=== PATIENT | female | born 1980 | race Caucasian/White ===

== ENCOUNTER 2021-05-17 18:05 | Inpatient (IN) | payer SELFPAY ==
[2021-05-17] VITALS (8 sets, daily range): BP systolic 91–146; BP diastolic 46–87; PULSE 98–135; RESP 16–24; TEMP 36.6–38.1; O2SAT 95–100; BMI 32.3
--- NOTE | 2021-05-17 18:26 | XRR_ITS ---
PROCEDURE INFORMATION: Exam: XR Chest Exam date and time: 05/17/2021 6:26 PM Age: 41 years old Clinical indication: Fever TECHNIQUE: Imaging protocol: XR of the chest. Views: 1 view. COMPARISON: No relevant prior studies available. FINDINGS: Lungs: The lungs are clear. Pleural spaces: Unremarkable. No pleural effusion. No pneumothorax. Heart/Mediastinum: Unremarkable. No cardiomegaly. Bones/joints: Unremarkable. XR/XR chest 1V portable [id number] IMPRESSION: No acute cardiopulmonary abnormality.
--- NOTE | 2021-05-17 18:27 | ED_ITS ---
HPI - Abdominal Pain General: Chief Complaint: Abdominal Pain Stated Complaint: ABD PAIN Time Seen by Provider: 05/17/21 18:26 Source: patient Mode of arrival: ambulatory Limitations: no limitations History of Present Illness: HPI narrative: 41-year-old female states she been having abdominal pain over the last 2 days. States she has had fevers up to 102 as well. She states she has had vomiting and today she had 3 episodes of diarrhea. States her pain is diffuse in nature. Denies any worsening improving factors. She has no history of any abdominal surgeries. She does not take any medicines. She denies any dysuria. MD elicited complaint: abdominal pain Associated Symptoms: Reports diarrhea, fever(s), nausea and vomiting; Denies dysuria Related Data: Date of Last Menstrual Period: 05/17/21 Review of Systems Const: Reports: fever(s) Eyes: Denies: blurry vision or eye discomfort ENMT: Denies: throat pain or dental pain Card: Denies: chest pain Resp: Denies: dyspnea GI: Reports: abdominal pain, nausea, vomiting and diarrhea : Denies: dysuria Musc: Denies: neck pain or back pain Skin/Breast: Denies: rash Neuro: Denies: headache(s) Psych: Denies: depression Pa/Lymph: Denies: easy bruising All/Imm: Denies: urticaria [facility] Female Reproductive History: Date of last menstrual period: 05/17/21 Physical Exam Const: COMMON NORMALS: no acute distress, patient oriented x3 and healthy appearing HENMT: COMMON NORMALS: normocephalic and atraumatic HEAD & SCALP: normocephalic and atraumatic Eye: COMMON NORMALS: Equal, round and reactive pupils present and EOMs intact bilaterally PUPIL: Yes Equal, round and reactive pupils present Neck/C-Spine: COMMON NORMALS: full ROM and supple Chest: COMMONS NORMALS: normal inspection of the chest and normal palpation of entire chest wall Resp: COMMON NORMALS: normal respiratory effort, No retractions, No use of accessory muscles and clear to auscultation bilaterally AUSCULTATION: clear to auscultation bilaterally Cardio: COMMON NORMALS: regular rate, regular rhythm and No murmurs present (Cardio) RATE: regular rate RHYTHM: regular rhythm GI: COMMON NORMALS: Normal to inspection, nondistended, normoactive bowel sounds present, Soft to palpation, non-tender and no masses PALPATION: Yes Soft to palpation and Yes Tenderness to palpation present (GI) (diffuse mild tenderness) Extremity: COMMON NORMALS: normal to inspection and full ROM Neuro: COMMON NORMALS: patient oriented x3, moves all extremities and no focal motor deficits Psych: COMMON NORMALS: mental status grossly normal, Normal thought process present and cooperative THOUGHT PROCESS: Normal thought process present Skin: COMMON NORMALS: no rashes or lesions noted and no wounds GENERAL SKIN EXAM: no rashes or lesions noted Course Vital Signs: Vital signs: Vital Signs Temperature 99.1 F 05/17/21 18:07 Pulse Rate 110 H 05/17/21 19:30 Respiratory Rate 24 H 05/17/21 19:30 Blood Pressure 134/78 05/17/21 19:30 Pulse Oximetry 99 05/17/21 19:30 MDM - Abdominal Pain MDM Narrative: Medical decision making narrative: Patient presents here with appendicitis. I spoke to surgeon on-call who is wanting patient to the operating room tonight. Patient given IV antibiotics here. Lab Data: Labs: Lab Results 05/17/21 05/17/21 05/17/21 Range/Units 18:20 18:20 18:20 WBC 16.7 H (4.0-10.0) 10^3/ uL RBC 4.49 (4.1-5.3) 10^6/u L Hgb 11.9 (11.5-15.3) g/dL Hct 37.5 (37.0-47.0) % MCV 83.5 (81-99) fL MCH 26.5 L (28.0-34.0) pg MCHC 31.7 (30.0-36.0) g/dL RDW 17.2 H (12.1-15.1) % Plt Count 406 H (130-400) 10^3/c mm MPV 9.8 (7.4-10.4) fL Neut % (Auto) 90.6 % Lymph % (Auto) 4.8 % [place] % (Auto) 3.8 % Eos % (Auto) 0.0 % Baso % (Auto) 0.3 % Neut # (Auto) 15.14 H (1.8-7.7) 10^3/u L Lymph # (Auto) 0.8 (0.8-4.8) 10^3/u L [place] # (Auto) 0.6 (0.2-0.9) 10^3/u L Eos # (Auto) 0.0 (0.0-0.8) 10^3/u L Baso # (Auto) 0.1 (0.0-0.1) 10^3/u L Nucleated RBC % (a uto) 0 % Nucleated RBCs # 0.0 /100WBC Sodium 131 L (136-145) mmol/L Potassium 3.5 (3.5-5.1) mmol/L Chloride 95 L (98-107) mmol/L Carbon Dioxide 22 (22-29) mmol/L Anion Gap 17.5 (5-19) BUN 4 L (6-20) mg/dL Creatinine 0.6 (0.5-0.9) mg/dL GFR Calculation 110.2 (90-130) mL/min Glucose 101 (65-115) mg/dL Calculated Osmolal ity 269 L (285-295) mOsm/k g Lactic Acid (0.5-2.2) mmol/L Calcium 8.3 L (8.5-10.5) mg/dL Total Bilirubin 0.5 (0.15-1.2) mg/dL AST 10 (0-32) U/L ALT 7 (0-33) U/L Alkaline Phosphata se 84 (35-105) IU/L Total Protein 7.4 (6.6-8.7) g/dL Albumin 4.1 (3.5-5.2) g/dL Globulin 3.3 (1.3-4.6) g/dL Lipase 13 (13-60) U/L HCG, Qual Negative (Negative) Urine Color (Yellow) Urine Appearance (CLEAR) Urine pH (5-7) Ur Specific Gravit y (1.005-1.030) Urine Protein (Negative) Urine Glucose (UA) (Normal) Urine Ketones (Negative) Urine Blood (Negative) Urine Nitrate (Negative) Urine Bilirubin (Negative) Urine Urobilinogen (Negative) mg/dL Ur Leukocyte Maria Antonia ase (Negative) Urine RBC (0-2) /hpf Urine WBC (0-5) /hpf Ur Squamous Epith Cells (0-5) /hpf Amorphous Sediment Urine Bacteria (NONE) /hpf 05/17/21 05/17/21 Range/Units 18:38 18:38 WBC (4.0-10.0) 10^3/ uL RBC (4.1-5.3) 10^6/u L Hgb (11.5-15.3) g/dL Hct (37.0-47.0) % MCV (81-99) fL MCH (28.0-34.0) pg MCHC (30.0-36.0) g/dL RDW (12.1-15.1) % Plt Count (130-400) 10^3/c mm MPV (7.4-10.4) fL Neut % (Auto) % Lymph % (Auto) % [place] % (Auto) % Eos % (Auto) % Baso % (Auto) % Neut # (Auto) (1.8-7.7) 10^3/u L Lymph # (Auto) (0.8-4.8) 10^3/u L [place] # (Auto) (0.2-0.9) 10^3/u L Eos # (Auto) (0.0-0.8) 10^3/u L Baso # (Auto) (0.0-0.1) 10^3/u L Nucleated RBC % (a uto) % Nucleated RBCs # /100WBC Sodium (136-145) mmol/L Potassium (3.5-5.1) mmol/L Chloride (98-107) mmol/L Carbon Dioxide (22-29) mmol/L Anion Gap (5-19) BUN (6-20) mg/dL Creatinine (0.5-0.9) mg/dL GFR Calculation (90-130) mL/min Glucose (65-115) mg/dL Calculated Osmolal ity (285-295) mOsm/k g Lactic Acid 1.2 (0.5-2.2) mmol/L Calcium (8.5-10.5) mg/dL Total Bilirubin (0.15-1.2) mg/dL AST (0-32) U/L ALT (0-33) U/L Alkaline Phosphata se (35-105) IU/L Total Protein (6.6-8.7) g/dL Albumin (3.5-5.2) g/dL Globulin (1.3-4.6) g/dL Lipase (13-60) U/L HCG, Qual (Negative) Urine Color Straw (Yellow) Urine Appearance Clear (CLEAR) Urine pH 5 (5-7) Ur Specific Gravit y 1.005 (1.005-1.030) Urine Protein Neg (Negative) Urine Glucose (UA) Norm (Normal) Urine Ketones 2+ H (Negative) Urine Blood 3+ H (Negative) Urine Nitrate Negative (Negative) Urine Bilirubin Neg (Negative) Urine Urobilinogen Neg (Negative) mg/dL Ur Leukocyte Maria Antonia ase Negative (Negative) Urine RBC 5-10 H (0-2) /hpf Urine WBC 0-4 H (0-5) /hpf Ur Squamous Epith Cells 0-4 H (0-5) /hpf Amorphous Sediment Not Reportable Urine Bacteria 1+ H (NONE) /hpf Imaging Data ^: CT Abd/Pel: Attestation: I personally reviewed and interpreted this imaging study as follows: Radiologist's impression: [place] [address] CT Scan Report Signed with Addenda Patient: Tom Fernandes Unit #: [id number] : 1980 Age/Sex: 41 / F ADM Date: 05/17/21 Loc: ER Room/Bed: Attending Dr: Ordering Provider/Ordering MD: Eber Vela MD Date of Service: 05/17/21 Procedure(s): CT abdomen pelvis w con* [id number] Accession Number(s): [id number] Report Number: [id number]/CT abdomen pelvis w con* [id number] EBER VELA was informed of exam results at 05/17/2021 8:30 PM CDT. Radiation Dose CTDIVOL = (mGy): DLP = 1652.39 (mGy-cm) Addendum Dictated By: Christopher Damon MD Addendum Signed By: Christopher Damon MD Signed Date/Time: 05/17/212031 Addendum Cosigned By: PROCEDURE INFORMATION: Exam: CT Abdomen And Pelvis With Contrast Exam date and time: 05/17/2021 6:26 PM Age: 41 years old Clinical indication: Nausea and vomiting and other: Diarrhea; Abdominal pain; Localized; Lower; Prior surgery; Surgery type: ; Additional info: Fever TECHNIQUE: Imaging protocol: Computed tomography of the abdomen and pelvis with contrast. Radiation optimization: All CT scans at this facility use at least one of these dose optimization techniques: automated exposure control; mA and/or kV adjustment per patient size (includes targeted exams where dose is matched to clinical indication); or iterative reconstruction. Contrast material: OMNI 300; Contrast volume: 95 ml; Contrast route: INTRAVENOUS (IV); COMPARISON: CR (CHEST, ) 05/17/2021 6:58 PM RADIATION DOSE METRICS: Total DLP (mGy-cm): 1652.39 FINDINGS: Mediastinal space: A small hiatal hernia is present. Liver: A small 15 mm cyst is present in the right hepatic lobe. Gallbladder and bile ducts: Normal. No calcified stones. No ductal dilation. Pancreas: Normal. No ductal dilation. Spleen: Normal. No splenomegaly. Adrenal glands: Normal. No mass. Kidneys and ureters: Normal. No hydronephrosis. Stomach and bowel: Multiple loops of jejunum are mildly distended with fluid in the left aspect of the abdomen, which is nonspecific. No definite obstruction. Air and stool are present in the colon. Appendix: The appendix is mildly enlarged measuring up to 10 mm in diameter. A small appendicoliths is present in the proximal appendix. Mild periappendiceal fat stranding is noted. Tiny foci of air are seen adjacent to the appendix suggesting microperforation. No abscess is visualized. Intraperitoneal space: A small amount of free fluid is present in the pelvis. Vasculature: No abdominal aortic aneurysm. The right ovarian vein is mildly distended. Lymph nodes: Unremarkable. No enlarged lymph nodes. Urinary bladder: Unremarkable as visualized. Reproductive: The uterus and ovaries appear normal. Bones/joints: No acute fracture. Soft tissues: A small umbilical hernia containing fat is noted. CT/CT abdomen pelvis w con* [id number] IMPRESSION: 1. Perforated appendicitis. 2. Small hiatal hernia. 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
[2021-05-17 18:45] LABS: Basophils # 0.1 10^3/uL (0.0-0.1); Basophils % 0.3 %; Hematocrit 37.5 % (37.0-47.0); Hemoglobin 11.9 g/dL (11.5-15.3); Lymphocytes # 0.8 10^3/uL (0.8-4.8); Lymphocytes % 4.8 %; Mean Corpuscular HGB Conc 31.7 g/dL (30.0-36.0); Mean Corpuscular Hemoglobin 26.5 pg (28.0-34.0); Mean Corpuscular Volume 83.5 fL (81-99); Mean Platelet Volume 9.8 fL (7.4-10.4); Monocytes # 0.6 10^3/uL (0.2-0.9); Monocytes % 3.8 %; Neutrophils # 15.14 10^3/uL (1.8-7.7); Neutrophils % 90.6 %; Nucleated Red Blood Cells % 0 %; Platelet Count 406 10^3/cmm (130-400); Red Blood Count 4.49 10^6/uL (4.1-5.3); Red Cell Distribution Width 17.2 % (12.1-15.1); White Blood Count 16.7 10^3/uL (4.0-10.0)
[2021-05-17] MEDS: sodium chloride 0.9% 1,000 ML 999 ML IV ×2 (18:45→18:46)
[2021-05-17 18:47] LABS: HCG Qualitative Urine. Negative (Negative)
--- NOTE | 2021-05-17 19:16 | PC.NURSE ---
Report from SELMA Walsh
[2021-05-17 19:17] LABS: Alanine Aminotransferase 7 U/L (0-33); Albumin Level 4.1 g/dL (3.5-5.2); Alkaline Phosphatase 84 IU/L (35-105); Anion Gap 17.5 (5-19); Aspartate Amino Transferase 10 U/L (0-32); Blood Urea Nitrogen 4 mg/dL (6-20); Calcium 8.3 mg/dL (8.5-10.5); Carbon Dioxide 22 mmol/L (22-29); Chloride 95 mmol/L (98-107); Globulin 3.3 g/dL (1.3-4.6); Glomerular Filtration Rate 110.2 mL/min (90-130); Glucose 101 mg/dL (65-115); Lipase 13 U/L (13-60); Osmolality Calculated 269 mOsm/kg (285-295); Potassium 3.5 mmol/L (3.5-5.1); Sodium 131 mmol/L (136-145); Total Bilirubin 0.5 mg/dL (0.15-1.2); Total Protein 7.4 g/dL (6.6-8.7)
[2021-05-17 19:18] LABS: Lactic Sepsis W/Reflex 1.2 mmol/L (0.5-2.2)
[2021-05-17 19:20] LABS: Add Urine Microscopic? YES; Bilirubin Urine Neg (Negative); Blood Urine 3+ (Negative); Glucose Urine UA Norm (Normal); Ketones Urine 2+ (Negative); Leukocyte Esterase Urine Negative (Negative); Nitrate Urine Negative (Negative); Protein Urine Neg (Negative); Specific Gravity, Urine 1.005 (1.005-1.030); Urine Appearance Clear (CLEAR); Urine Color Straw (Yellow); Urobilinogen Urine Neg (Negative); pH Urine 5 (5-7)
[2021-05-17 19:21] LABS: Add Urine Culture? No; Bacteria Urine 1+ /hpf; Squamous Epithelial Cell Urine 0-4 /hpf (0-5); WBC Urine 0-4 /hpf (0-5)
[2021-05-17] MEDS: iohexol 300 mg/mL 100 mL Btl IV (19:32)
--- NOTE | 2021-05-17 20:23 | PC.NURSE ---
Still unable to provide stool specimen.
--- NOTE | 2021-05-17 20:53 | P.HP_ITS ---
Providers/Chief Complaint Admitting Physician: Froilan Ayoub MD Chief Complaint: ABD PAIN History of Present Illness HPI Ms. Tom Fernandes is a pleasant 41 year old female presents with worsening abdominal pain located more in the right lower quadrant, started at the periumbilical region before today associated with nausea but no vomiting and low-grade temperature, as the patient got worse patient presented to the ER and further work-up showed leukocytosis of 16.7, with a heart rate of 110 respiratory rate of 24/min, patient denies any history of other medical comorbidities or similar episodes of pain. CT scan of the abdomen pelvis did show Liver: A small 15 mm cyst is present in the right hepatic lobe. Gallbladder and bile ducts: Normal. No calcified stones. No ductal dilation. Pancreas: Normal. No ductal dilation. Spleen: Normal. No splenomegaly. Adrenal glands: Normal. No mass. Kidneys and ureters: Normal. No hydronephrosis. Stomach and bowel: Multiple loops of jejunum are mildly distended with fluid in the left aspect of the abdomen, which is nonspecific. No definite obstruction. Air and stool are present in the colon. Appendix: The appendix is mildly enlarged measuring up to 10 mm in diameter. A small appendicoliths is present in the proximal appendix. Mild periappendiceal fat stranding is noted. Tiny foci of air are seen adjacent to the appendix suggesting microperforation. No abscess is visualized. Intraperitoneal space: A small amount of free fluid is present in the pelvis. Vasculature: No abdominal aortic aneurysm. The right ovarian vein is mildly distended. Lymph nodes: Unremarkable. No enlarged lymph nodes. Urinary bladder: Unremarkable as visualized. Reproductive: The uterus and ovaries appear normal. Bones/joints: No acute fracture. Soft tissues: A small umbilical hernia containing fat is noted. CT/CT abdomen pelvis w con* [id number] IMPRESSION: 1. Perforated appendicitis. 2. Small hiatal hernia. Review of Systems General: Reports: 10 or more systems reviewed and unremarkable except in HPI and below Medications/Allergies Home Medications Medication Instructions Recorded Confirmed Last Taken Type No Known Home Medications 05/17/21 05/17/21 Unknown History Allergies Allergy/AdvReac Type Severity Reaction Status Date / Time No Known Allergies Allergy Verified 05/17/21 21:01 [facility] Acute Female Reproductive History: Date of last menstrual period: 06/17/21 Vitals/I&O/Wt Last Vital Signs Temp 99.1 F 05/17/21 18:07 Pulse 110 H 05/17/21 19:30 Resp 24 H 05/17/21 19:30 BP 134/78 05/17/21 19:30 Pulse Ox 99 05/17/21 19:30 05/17/21 05/17/21 05/17/21 06:59 14:59 22:59 Intake Total 16.65 / 16.65 Balance 16.65 / 16.65 Weight last 48 hrs Weight 190 lb Physical Exam Narrative: EXAM NARRATIVE: Patient is conscious alert oriented X3 BMI 32.4 Head and neck examination PERRLA no masses no cervical lymphadenopathy no jaund ice Cardiac examination audible S1-S2 no murmurs no gallops no arrhythmias Chest is clear bilateral,abscence of Rhonchi or wheezes,no surgical emphysema Abdomen right LOWER quadrant tenderness with maximal tenderness at McBurney's point with localized guarding and rigidity, mildly tender otherwise in the right upper quadrant and suprapubic area nondistended soft no organomegaly guarding or rigidity/no signs of DIFFUSE peritonitis. Small incarcerated umbilical hernia Extremities no cyanosis no clubbing no edema Data : 05/17/21 18:20 05/17/21 18:20 Micro: Microbiology 05/17/21 18:35 Blood Culture - Preliminary Blood SPECIMEN COLLECTED 05/17/21 18:20 Blood Culture - Preliminary Blood SPECIMEN COLLECTED A&P Assessment and plan (1) Acute appendicitis: After thorough history physical examination and reviewing the chart and images of the CT scan with my personal interpretion, I counseled the patient for laparoscopic appendectomy possible open. Indications, risks, benefits and alternatives were all discussed with the patient and did agree to proceed. Rationale was carefully and clearly discussed with the patient.Appropriate informed consent have been reviewed and signed Status: Acute Qualifiers: Acute appendicitis type: with generalized peritonitis Appendicitis abscess presence: without abscess Appendicitis gangrene presence: without gangrene Appendicitis perforation presence: with perforation Qualified Code(s): K35.20 - Acute appendicitis with generalized peritonitis, without abscess Attestations Medical Necessity Statement*: Observation status for perioperative care Time Spent in Patient Care: (>than 50% of time spent in counselling and/or direct pt care on unit) . 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
--- NOTE | 2021-05-17 21:00 | PC.NURSE ---
Pt placed in gown, 2nd iv initiated in preparation for surgery. Surgeon in room.
[2021-05-17] MEDS: piperacillin-tazobactam 3.375 GM in sodium chloride 0.9% (plus) 50 ML IV (21:07)
--- NOTE | 2021-05-17 21:26 | PC.NURSE ---
Report to SELMA Brady
[2021-05-17] MEDS: sodium chloride 0.9% 1,000 ML 30 ML IV (21:40)
[2021-05-17] MEDS: acetaminophen 1,000 MG/100 ML PIGGYBACK 400 MG IV (21:50)
--- NOTE | 2021-05-17 22:11 | ANES.PREANE2 ---
Pre-Anesthetic Assessment Pre-Anesthetic Assessment: Height/Weight: Height 1.63 m Weight 86.183 kg Temp Pulse Resp BP Pulse Ox 100.6 F H 121 H 18 146/82 98 05/17/21 21:35 05/17/21 21:35 05/17/21 21:35 05/17/21 21:35 05/17/21 21:35 Preop Diagnosis: Acute appendicitis with perforation Proposed Procedure: Operation Date: 05/17/21 22:00 Proposed Procedures p Laparoscopic Appendectomy(Not Applicable) - Froilan Ayoub MD Was Beta Lis taken within 24 hours: N/A Was Clonidine taken within 24 hours: N/A Social: Social History: No alcohol and No tobacco Exam: Pre-Anes Outpt Exam: alert, oriented x 3, clear to auscultation bilaterally and regular rate & rhythm Airway: Submandibular: WNL Cervical ROM: WNL MP: 2 Dentition: Full History/ROS: No significant history except as noted GI: Comments: Acute abd Metabolic: Metabolic: Morbid obesity Anesthetic Plan: ASA status: 2E Anesthesia: General (Mod RSI) Risk of > 500 ml blood loss (7ml/kg in children): No PFSH Anesthesia Female Reproductive History: Date of last menstrual period: 05/17/21 Data Anesthesia CBC & Chem 7: 05/17/21 18:20 05/17/21 18:20 Other Labs: Laboratory Results - last 48 hr 05/17/21 05/17/21 05/17/21 18:20 18:20 18:20 WBC 16.7 H RBC 4.49 Hgb 11.9 Hct 37.5 MCV 83.5 MCH 26.5 L MCHC 31.7 RDW 17.2 H Plt Count 406 H MPV 9.8 Neut % (Auto) 90.6 Lymph % (Auto) 4.8 [place] % (Auto) 3.8 Eos % (Auto) 0.0 Baso % (Auto) 0.3 Neut # (Auto) 15.14 H Lymph # (Auto) 0.8 [place] # (Auto) 0.6 Eos # (Auto) 0.0 Baso # (Auto) 0.1 Nucleated RBC % (auto) 0 Nucleated RBCs # 0.0 Sodium 131 L Potassium 3.5 Chloride 95 L Carbon Dioxide 22 Anion Gap 17.5 BUN 4 L Creatinine 0.6 GFR Calculation 110.2 Glucose 101 Calculated Osmolality 269 L Lactic Acid Calcium 8.3 L Total Bilirubin 0.5 AST 10 ALT 7 Alkaline Phosphatase 84 Total Protein 7.4 Albumin 4.1 Globulin 3.3 Lipase 13 HCG, Qual Negative Urine Color Urine Appearance Urine pH Ur Specific [place] Urine Protein Urine Glucose (UA) Urine Ketones Urine Blood Urine Nitrate Urine Bilirubin Urine Urobilinogen Ur Leukocyte Esterase Urine RBC Urine WBC Ur Squamous Epith Cells Amorphous Sediment Urine Bacteria 05/17/21 05/17/21 18:38 18:38 WBC RBC Hgb Hct MCV MCH MCHC RDW Plt Count MPV Neut % (Auto) Lymph % (Auto) [place] % (Auto) Eos % (Auto) Baso % (Auto) Neut # (Auto) Lymph # (Auto) [place] # (Auto) Eos # (Auto) Baso # (Auto) Nucleated RBC % (auto) Nucleated RBCs # Sodium Potassium Chloride Carbon Dioxide Anion Gap BUN Creatinine GFR Calculation Glucose Calculated Osmolality Lactic Acid 1.2 Calcium Total Bilirubin AST ALT Alkaline Phosphatase Total Protein Albumin Globulin Lipase HCG, Qual Urine Color Straw Urine Appearance Clear Urine pH 5 Ur Specific [place] 1.005 Urine Protein Neg Urine Glucose (UA) Norm Urine Ketones 2+ H Urine Blood 3+ H Urine Nitrate Negative Urine Bilirubin Neg Urine Urobilinogen Neg Ur Leukocyte Esterase Negative Urine RBC 5-10 H Urine WBC 0-4 H Ur Squamous Epith Cells 0-4 H Amorphous Sediment Not Reportable Urine Bacteria 1+ H Micro: Microbiology 05/17/21 18:35 Blood Culture - Preliminary Blood SPECIMEN COLLECTED 05/17/21 18:20 Blood Culture - Preliminary Blood SPECIMEN COLLECTED Cardiac Studies: No Data to Display
--- NOTE | 2021-05-17 22:52 | PM.OP ---
Operative Report Date of procedure: May 17, 2021 Pre-op Diagnosis: Acute appendicitis with perforation Post-op diagnosis: same Post-op Findings: Retrocecal appendicitis with suppuration and surrounding inflammatory reaction with localized perforation and pelvic Chronically incarcerated umbilical hernia with fascial defect less than 1 inch in diameter Procedure Done: 1-Laparoscopic appendectomy 2-primary umbilical hernia repair Surgeon: Froilan Ayoub Metal Cut Off Saw Tender: Surgical briseida Alfonso and Rosalina Segal nurse Lucila Anesthesia: General (Tyler Cadet and Dr. Harper) Estimated blood loss (mL): 10 IV fluids (mL): 2,000 Condition: stable Disposition: observation Brief History: Perforated appendicitis, full H&P and informed consent per chart Procedure: Patient after being identified in the holding area and asked to void urine, and informed consent per chart ,patient was then taken back to the OR placed in supine position got intubated by anesthesia left arm was tucked tucked ,Timeout was done verifying the patient's name/date of /planned procedure and destination after the procedure, all were in agreement., preoperative antibiotics administered per protocol. prep and drape of the abdomen was done under the usual sterile technique. Started by longitudinal skin incision at umbilical region, patient was noticed to have chronically incarcerated fat at the umbilicus coinciding with umbilical hernia with fascial defect less than 1 inch in diameter , dissection was done and the contents were sent for permanent pathology following that using a Ricks trocar technique safe entry to the abdominal cavity was achieved verified by using 10 mm zero degree laparoscopy, switched to a 30? scope under direct visualization a suprapubic 5 mm trocar was inserted followed by another 5 mm trocar inserted in the left lower quadrant, I was able to position the patient in an T Braden and left side down, noticed that the patient had encasing omentum on top of the inflamed appendix. That was taken down revealing acute suppurative appendicitis with small perforation with pelvic reaction. Dissection of the retrocecal acutely inflamed appendix with perforation there were some adhesions that were taken down by sharp and blunt dissection, attention was deviated to the healthy base of the appendix where I had to switch the camera to 5 mm 30? scope got introduced through the left lower quadrant and through the Ricks trocar under direct visualization a GI stapler 45 mm blue load was applied at the healthy part of the base of the appendix, and an Endoloop PDS and Vicryl were applied onto the mesoappendix for control , the appendix was then retrieved in an Endo Catch bag, final survey was done of the abdomen and pelvis , copious and thorough irrigation with warm saline, and suction was obtained, were mercury fluid like in the pelvis due to reaction from the inflamed perforated appendix. Multiple 5 mm clips were applied onto the mesoappendix as well as the appendectomy staple line and a right lateral pelvic wall for minimal oozing. Final look laparoscopy was done showing no other abnormalities or injuries, all trocars were taken out under direct visualization after the supraumblical trocar(umbilical fascial defect )site was closed by #1. PDS sutures under direct vision using fascial closure device ,followed by skin closure using skin fernando of all trocar site incisions. infiltration of local lidocaine 2% was done to all incision sites.Dry dressing was applied. Count was completed at the end of the procedure for [place] , sponges and instruments Patient tolerated the procedure well and was transferred to the recovery area after extubation. I was present for the whole entire procedure
[2021-05-18] VITALS (17 sets, daily range): BP systolic 99–125; BP diastolic 60–84; PULSE 86–125; RESP 16–30; TEMP 36.9–38.5; O2SAT 93–98
[2021-05-18] MEDS: lactated ringers 1,000 ML 150 ML IV ×4 (00:51→23:39)
[2021-05-18] MEDS: famotidine 20 mg/2 mL INJ IVP ×2 (00:52→11:28)
[2021-05-18 02:14] LABS: Basophils % 0.4 %; Hematocrit 32.2 % (37.0-47.0); Lymphocytes # 0.3 10^3/uL (0.8-4.8); Lymphocytes % 2.3 %; Mean Corpuscular HGB Conc 31.1 g/dL (30.0-36.0); Mean Corpuscular Hemoglobin 26.5 pg (28.0-34.0); Mean Corpuscular Volume 85.4 fL (81-99); Mean Platelet Volume 9.5 fL (7.4-10.4); Monocytes # 0.4 10^3/uL (0.2-0.9); Monocytes % 3.5 %; Neutrophils # 10.54 10^3/uL (1.8-7.7); Neutrophils % 93.5 %; Nucleated Red Blood Cells % 0 %; Platelet Count 313 10^3/cmm (130-400); Red Blood Count 3.77 10^6/uL (4.1-5.3); Red Cell Distribution Width 17.4 % (12.1-15.1); White Blood Count 11.3 10^3/uL (4.0-10.0)
[2021-05-18 02:34] LABS: Anion Gap 16.9 (5-19); Blood Urea Nitrogen 5 mg/dL (6-20); Calcium 6.8 mg/dL (8.5-10.5); Carbon Dioxide 17 mmol/L (22-29); Chloride 108 mmol/L (98-107); Glomerular Filtration Rate 110.2 mL/min (90-130); Glucose 116 mg/dL (65-115); Osmolality Calculated 284 mOsm/kg (285-295); Potassium 3.9 mmol/L (3.5-5.1); Sodium 138 mmol/L (136-145)
--- NOTE | 2021-05-18 04:18 | PC.NURSE ---
Vitals Patient care nurse Cate Logan LPN notified of patient current vital signs
[2021-05-18] MEDS: lactated ringers 1,000 ML 999 ML IV (05:02)
[2021-05-18] MEDS: piperacillin-tazobactam 3.375 GM in sodium chloride 0.9% (plus) 50 ML IV ×3 (05:48→21:10)
[2021-05-18] MEDS: acetaminophen 1,000 MG/100 ML PIGGYBACK 400 MG IV ×3 (06:21→21:10)
--- NOTE | 2021-05-18 06:59 | ANE.PACU2 ---
Inpatient post-anesthesia follow up: Airway intact: Yes Vital signs: Temperature 101.0 F Pulse Rate [Monito r] 135 Pulse Rate 125 Respiratory Rate 19 Blood Pressure [Le ft Arm] 134/87 Blood Pressure 115/74 Pulse Oximetry 95 Oxygen Delivery Me thod Room Air Oxygen Flow Rate Fraction of Inspir ed Oxygen Hydration adequate: Yes Nausea and vomiting: No Pain level: 2 Mental status: Baseline
[2021-05-18] MEDS: metroNIDAZOLE IV 500 MG/100 ML PREMIX 100 MG IV ×3 (08:01→23:39)
--- NOTE | 2021-05-18 08:22 | PM.PN ---
Subjective Subjective: Interval history: Overall patient feels better, continues to be tachycardic and having fevers otherwise maintained to have good urine output. 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, appears to be anxious Vitals/I&O/Wt Last Vital Signs Temp 101.0 F H 05/18/21 06:16 Pulse 125 H 05/18/21 06:25 Resp 19 H 05/18/21 06:20 BP 115/74 05/18/21 06:16 Pulse Ox 95 05/18/21 06:20 05/17/21 05/18/21 05/18/21 22:59 06:59 14:59 Intake Total 3777.5 / 5794.15 100 / 100 Output Total 950 / 955 Balance 2827.5 / 4839.15 100 / 100 Weight last 48 hrs Weight 190 lb Physical Exam Narrative: EXAM NARRATIVE: Patient is conscious alert oriented X3 Anxious BMI 32.4 Head and neck examination PERRLA no masses no cervical lymphadenopathy no jaundice Cardiac examination audible S1-S2 no murmurs no gallops no arrhythmias Chest is clear bilateral,abscence of Rhonchi or wheezes,no surgical emphysema Abdomen nontender except mildly at the incision sites nondistended soft no organomegaly guarding or rigidity/no signs of peritonitis Extremities no cyanosis no clubbing no edema Data : 05/18/21 02:07 05/18/21 02:07 Micro: Microbiology 05/17/21 18:35 Blood Culture - Preliminary Blood SPECIMEN COLLECTED 05/17/21 18:20 Blood Culture - Preliminary Blood SPECIMEN COLLECTED A&P Assessment and plan (1) Acute appendicitis: Status post laparoscopic appendectomy 05/17/2021 for perforated appendicitis and pelvic peritonitis We will start the patient on clear liquid diet slow Encourage ambulation Will add hydrocodone 5/325 mg p.o. every 6 hours as needed for pain Incentive spirometer every hour Will add Flagyl 500 mg every 8 hours IV to Zosyn Assurance and education All questions have been answered and all concerns have been addressed to patient's satisfaction. Status: Resolved Qualifiers: Acute appendicitis type: with generalized peritonitis Appendicitis abscess presence: without abscess Appendicitis gangrene presence: without gangrene Appendicitis perforation presence: with perforation Qualified Code(s): K35.20 - Acute appendicitis with generalized peritonitis, without abscess Attestations Medical Necessity Statement*: Patient requiring observation for IV antimicrobial therapy and pain control Time Spent in Patient Care: (>than 50% of time spent in counselling and/or direct pt care on unit). 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
[2021-05-18] MEDS: HYDROcodone-acetaminophen 5-325 mg Tablet 1 TAB PO ×2 (08:55→15:07)
--- NOTE | 2021-05-18 13:27 | PC.CHAP ---
Pastoral Care Encounter/Spiritual Assessment Type of Contact [] Declined video game designer visit [] Patient/Family/Request visit [] Outpatient visit [] Follow-up visit [] Physician referral [] Code/Alert [xx] Routine visit [] Staff referral [] Actively dying [] Patient sleeping [] Family support [] [] Out of room [] Palliative care [] [] Receiving care in room [] Pre-surgical visit [] Trauma [] Long length of stay [] ICU visit [] Other: Relational/Emotional Strength [xx] Patient feels connected with others/family/visitors/staff [] Distress [] Loneliness/isolation [] Abandonment Spirituality of Patient [xx] Person of Deysi [xx] Attends Restoration of their Deysi [xx] Believes in Prayer [xx] Reads Bible or Zoroastrianism materials [] There are Spiritual issues to be addressed Director Energy Interventions [xx] Prayer [xx] Active listening [xx] Non-anxious presence [] Spiritual/emotional support [] Crisis/trauma care [] Spiritual counseling [] Bereavement support [] Provided bereavement packet [xx] Provided Bible/devotional materials [] Provided toy/stuffed animal, coloring book to patient or family member [] Provided Communion [] Anointing/[place] [] Salvation [xx] Completed spiritual assessment [] Other: Impact on Illness or Injury [] Angry [] Fearful [] Anxious [] Often cries [] Exhaustion [] Unable to work [] Unable to attend hindu [] Unable to walk/stand [] Unable to read [] Unable to drive [] Unable to eat/drink [] Unable to sleep [] Unable to be with family [] Patient intubated [] Other: Summary Patient, spouse and 9 children are transitioning from [place] to [facility] to [place] and live. Patient stated she is feeling much better after emergency appendectomy. She believes Gos is in control and is using this time for her to have alone time to ponder and consider family changes and what His will is for their futures. Time spent with patient 17 minutes
[2021-05-19] VITALS (8 sets, daily range): BP systolic 109–136; BP diastolic 72–94; PULSE 93–107; RESP 16–18; TEMP 36.9–37.4; O2SAT 92–98
[2021-05-19] MEDS: famotidine 20 mg/2 mL INJ IVP ×3 (00:55→23:20)
[2021-05-19] MEDS: HYDROcodone-acetaminophen 5-325 mg Tablet 1 TAB PO (04:11)
[2021-05-19] MEDS: piperacillin-tazobactam 3.375 GM in sodium chloride 0.9% (plus) 50 ML IV ×3 (05:43→20:12)
--- NOTE | 2021-05-19 06:32 | PM.PN ---
Subjective Subjective: Interval history: I am hurting at the lower part of my tummy, passing gas and had a small bowel movement. Otherwise no acute events overnight. Adequate urine output, no recorded fevers Medications: Reviewed: Yes Vitals/I&O/Wt Last Vital Signs Temp 98.6 F 05/19/21 03:50 Pulse 94 05/19/21 03:50 Resp 18 05/19/21 03:50 BP 109/72 05/19/21 03:50 Pulse Ox 93 05/19/21 03:50 05/18/21 05/18/21 05/19/21 14:59 22:59 06:59 Intake Total 832.5 / 832.5 2967.5 / 3800.0 1250 / 5050.0 Output Total 1000 / 1000 1000 / 2000 Balance -167.5 / -167.5 1967.5 / 1800.0 1250 / 3050.0 Weight last 48 hrs Weight 190 lb Physical Exam Narrative: EXAM NARRATIVE: Patient is conscious alert oriented X3 BMI 32.4 Head and neck examination PERRLA no masses no cervical lymphadenopathy no jaundice Cardiac examination audible S1-S2 no murmurs no gallops no arrhythmias Chest is clear bilateral,abscence of Rhonchi or wheezes,no surgical emphysema Abdomen nontender except mildly at the incision sites nondistended soft no organomegaly guarding or rigidity/no signs of peritonitis Dressing was taken down and skin fernando in place and incisions clean dry and intact Extremities no cyanosis no clubbing no edema Data : 05/19/21 06:38 05/19/21 06:38 Micro: Microbiology 05/17/21 18:35 Blood Culture - Preliminary Blood NEGATIVE TO DATE 05/17/21 18:20 Blood Culture - Preliminary Blood NEGATIVE TO DATE A&P Assessment and plan (1) Acute appendicitis: Status post laparoscopic appendectomy 05/17/2021 for perforated appendicitis and pelvic peritonitis Will advance to full liquid diet,once patient have a bowel movement Replacement of potassium Encourage ambulation Continue SCDs Incentive spirometer every hour Continue IV antimicrobial therapy Drift in hemoglobin to 8.7 g/dL, patient continues to have her cycle Will drop LR to 100 mL/h Patient can shower today Assurance and education All questions have been answered and all concerns have been addressed to patient's satisfaction. Status: Resolved Qualifiers: Acute appendicitis type: with generalized peritonitis Appendicitis abscess presence: without abscess Appendicitis gangrene presence: without gangrene Appendicitis perforation presence: with perforation Qualified Code(s): K35.20 - Acute appendicitis with generalized peritonitis, without abscess Attestations Medical Necessity Statement*: Patient requiring inpatient admission in the hospital passing 2 midnights for IV antimicrobial therapy and correction of electrolytes, awaiting bowel functions. Time Spent in Patient Care: (>than 50% of time spent in counselling and/or direct pt care on unit). 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
--- NOTE | 2021-05-19 07:30 | PC.NURSE ---
Report received. Pt resting in bed. AAOx4. Denies any needs at this time. Makes all needs known. Will monitor.
[2021-05-19 07:36] LABS: Basophils % 0.5 %; Eosinophils % 0.3 %; Hematocrit 30.5 % (37.0-47.0); Hemoglobin 8.7 g/dL (11.5-15.3); Lymphocytes # 0.7 10^3/uL (0.8-4.8); Mean Corpuscular HGB Conc 28.5 g/dL (30.0-36.0); Mean Corpuscular Hemoglobin 26.9 pg (28.0-34.0); Mean Corpuscular Volume 94.1 fL (81-99); Mean Platelet Volume 10.3 fL (7.4-10.4); Monocytes # 0.3 10^3/uL (0.2-0.9); Neutrophils # 5.33 10^3/uL (1.8-7.7); Neutrophils % 82.4 %; Nucleated Red Blood Cells % 0 %; Platelet Count 239 10^3/cmm (130-400); Red Blood Count 3.24 10^6/uL (4.1-5.3); Red Cell Distribution Width 18.1 % (12.1-15.1); White Blood Count 6.5 10^3/uL (4.0-10.0)
[2021-05-19] MEDS: lactated ringers 1,000 ML 150 ML IV (07:44)
[2021-05-19 07:47] LABS: Anion Gap 10.3 (5-19); Blood Urea Nitrogen 4 mg/dL (6-20); Calcium 6.8 mg/dL (8.5-10.5); Carbon Dioxide 22 mmol/L (22-29); Chloride 108 mmol/L (98-107); Glomerular Filtration Rate 175.9 mL/min (90-130); Glucose 131 mg/dL (65-115); Osmolality Calculated 283 mOsm/kg (285-295); Potassium 3.3 mmol/L (3.5-5.1); Sodium 137 mmol/L (136-145)
[2021-05-19] MEDS: metroNIDAZOLE IV 500 MG/100 ML PREMIX 100 MG IV ×2 (09:13→16:10)
[2021-05-19] MEDS: potassium chloride oral liq 20 mEq/15 mL UDC 40 MEQ PO (09:13)
[2021-05-19] MEDS: glycerin adult supp 1 EACH PR (09:30)
[2021-05-19] MEDS: ondansetron 2 mg/ML SDV 2 mL 4 MG IVP (09:30)
[2021-05-19] MEDS: cyclobenzaprine 10 mg Tablet PO (10:15)
--- NOTE | 2021-05-19 10:58 | PC.NURSE ---
Pt suppository came out in [facility]. Pharmacy sent replacement, unable to scan med. Cece HAHN to administer per pt request that a female administers.
[2021-05-19] MEDS: acetaminophen 325 mg Tablet 650 MG PO (16:09)
[2021-05-19] MEDS: psyllium powder Pkt 1 PACKET PO (17:05)
[2021-05-19] MEDS: lactated ringers 1,000 ML 100 ML IV (19:44)
[2021-05-20] VITALS: BP 127/86; PULSE 106; RESP 16; TEMP 36.8; O2SAT 92
[2021-05-20] MEDS: metroNIDAZOLE IV 500 MG/100 ML PREMIX 100 MG IV ×2 (00:13→08:35)
[2021-05-20] MEDS: acetaminophen 325 mg Tablet 650 MG PO ×3 (00:25→14:45)
[2021-05-20 04:00] VITALS: BP 124/85; PULSE 87; RESP 16; TEMP 36.8; O2SAT 95
[2021-05-20] MEDS: piperacillin-tazobactam 3.375 GM in sodium chloride 0.9% (plus) 50 ML IV (04:38)
[2021-05-20] MEDS: lactated ringers 1,000 ML 100 ML IV (04:44)
--- NOTE | 2021-05-20 06:09 | P.PN_ITS ---
Subjective Subjective: Interval history: Patient continues to pass gas and tolerating p.o. intake. She seems to feel better with Tylenol instead of narcotics as made her loopy. Medications: Reviewed: Yes Vitals/I&O/Wt Last Vital Signs Temp 98.2 F 05/20/21 04:00 Pulse 87 05/20/21 04:00 Resp 16 05/20/21 04:00 BP 124/85 05/20/21 04:00 Pulse Ox 95 05/20/21 04:00 05/19/21 05/19/21 05/20/21 14:59 22:59 06:59 Intake Total 1927.5 / 1927.5 630 / 2557.5 1149 / 3706.5 Output Total 1300 / 1300 Balance 627.5 / 627.5 630 / 1257.5 1149 / 2406.5 Physical Exam Narrative: EXAM NARRATIVE: Patient is conscious alert oriented X3 BMI 32.4 Head and neck examination PERRLA no masses no cervical lymphadenopathy no jaundice Cardiac examination audible S1-S2 no murmurs no gallops no arrhythmias Chest is clear bilateral,abscence of Rhonchi or wheezes,no surgical emphysema Abdomen nontender except mildly at the incision sites nondistended soft no organomegaly guarding or rigidity/no signs of peritonitis skin fernando in place and incisions clean dry and intact Extremities no cyanosis no clubbing no edema Data : 05/20/21 06:34 05/20/21 06:34 A&P Assessment and plan (1) Acute appendicitis: Status post laparoscopic appendectomy 05/17/2021 for perforated appendicitis and pelvic peritonitis We will advance to soft GI diet Stable H&H Once patient tolerates soft GI diet we will plan to discharge home today on oral antibiotics and pain medications as needed Assurance and education All questions have been answered and all concerns have been addressed to patient's satisfaction. Status: Resolved Qualifiers: Acute appendicitis type: with generalized peritonitis Appendicitis abscess presence: without abscess Appendicitis gangrene presence: without gangrene Appendicitis perforation presence: with perforation Qualified Code(s): K35.20 - Acute appendicitis with generalized peritonitis, without abscess Attestations Medical Necessity Statement*: Patient required inpatient hospitalization passing 2 midnights for antimicrobial therapy, correction of electrolytes, and monitoring her H&H. In addition to monitoring of her bowel functions. Time Spent in Patient Care: 16 - 35 minutes (>than 50% of time spent in counselling and/or direct pt care on unit) . 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
[2021-05-20 06:45] LABS: Basophils % 0.3 %; Eosinophils # 0.1 10^3/uL (0.0-0.8); Eosinophils % 0.9 %; Hematocrit 30.6 % (37.0-47.0); Hemoglobin 9.4 g/dL (11.5-15.3); Mean Corpuscular HGB Conc 30.7 g/dL (30.0-36.0); Mean Corpuscular Hemoglobin 26.6 pg (28.0-34.0); Mean Corpuscular Volume 86.7 fL (81-99); Mean Platelet Volume 9.9 fL (7.4-10.4); Monocytes # 0.4 10^3/uL (0.2-0.9); Monocytes % 6.6 %; Neutrophils # 4.33 10^3/uL (1.8-7.7); Neutrophils % 74.9 %; Nucleated Red Blood Cells % 0 %; Platelet Count 337 10^3/cmm (130-400); Red Blood Count 3.53 10^6/uL (4.1-5.3); Red Cell Distribution Width 17.8 % (12.1-15.1); White Blood Count 5.8 10^3/uL (4.0-10.0)
[2021-05-20 07:09] LABS: Anion Gap 10.5 (5-19); Blood Urea Nitrogen 3 mg/dL (6-20); Calcium 7.4 mg/dL (8.5-10.5); Carbon Dioxide 26 mmol/L (22-29); Chloride 105 mmol/L (98-107); Glomerular Filtration Rate 175.9 mL/min (90-130); Glucose 129 mg/dL (65-115); Osmolality Calculated 284 mOsm/kg (285-295); Potassium 3.5 mmol/L (3.5-5.1); Sodium 138 mmol/L (136-145)
--- NOTE | 2021-05-20 07:39 | P.DS_ITS ---
Discharge Providers Date of Admission: 05/19/21 08:29 Date of Discharge: May 20, 2021 Attending Provider at Admission: Froilan Ayoub MD Attending Provider at Discharge: Froilan Ayoub MD Diagnoses at Discharge Discharge Diagnosis (1) Acute appendicitis: Status: Resolved Permanent problem details: Condition resolved and will plan to discharge patient home today Qualifiers: Acute appendicitis type: with generalized peritonitis Appendicitis abscess presence: without abscess Appendicitis gangrene presence: without gangrene Appendicitis perforation presence: with perforation Qualified Code(s): K35.20 - Acute appendicitis with generalized peritonitis, without abscess Reason for Visit Reason for Visit: ABD PAIN Hospital Course Hospital Course This is a pleasant 41 years old female patient presented to the emergency department with worsening abdominal pain. Patient has been out of state and coming to visit the area with her and her family. Has been giving history of abdominal pain for the past couple of days prior to presentation to the ER in addition to fevers of [address] scan was obtained that showed acute appendicitis with perforation. Also blood work showed leukocytosis, patient was taken urgently to the OR for laparoscopic appendectomy. And peritoneal lavage. Overall did well continue to be on broad- spectrum IV antibiotics and pain medications. Patient did encounter some drifting of her H&H likely due to her current menstruation which became heavy at some point. Patient maintained to have stable vital signs running no fevers and tolerating p.o. intake in addition to good urine output and normalization of WBC count. At some point required replacement of her potassium. Patient elected to be taken off narcotics as she started to get loopy and she responded well to oral Tylenol. Maintained to have stable H&H. Patient currently meet the appropriate criteria for safe discharge home and she will be discharged on oral antibiotics and some pain medications. Patient throughout the day had a small bowel movement and continues to pass gas. Physical Exam Narrative: EXAM NARRATIVE: Patient is conscious alert oriented X3 BMI 32.4 Head and neck examination PERRLA no masses no cervical lymphadenopathy no jaundice Cardiac examination audible S1-S2 no murmurs no gallops no arrhythmias Chest is clear bilateral,abscence of Rhonchi or wheezes,no surgical emphysema Abdomen nontender except mildly at the incision sites nondistended soft no organomegaly guarding or rigidity/no signs of peritonitis skin fernando in place and incisions clean dry and intact Extremities no cyanosis no clubbing no edema Discharge Data Data Completed and Pending: Completed Studies During Hospitalization Category Date Time Status CT abdomen pelvis w con* [id number] Urge nt Cat Scan 05/17/21 18:26 Completed XR chest 1V elmo ble [id number] Urgent Exams 05/17/21 18:26 Completed Pending at discharge Category Date Time Status ES surgery / GI i mages Routine Exams 05/17/21 21:23 Ordered Blood Culture Sta t Lab 05/17/21 18:35 Results Pathology: Surgic al [PTH] Routine Pth 05/17/21 22:35 Received Labs from last 24 hours 05/20/21 05/20/21 05/19/21 06:34 06:34 06:38 WBC 5.8 RBC 3.53 L Hgb 9.4 L Hct 30.6 L MCV 86.7 D MCH 26.6 L MCHC 30.7 D RDW 17.8 H Plt Count 337 MPV 9.9 Neut % (Auto) 74.9 Lymph % (Auto) 17.0 [place] % (Auto) 6.6 Eos % (Auto) 0.9 Baso % (Auto) 0.3 Neut # (Auto) 4.33 Lymph # (Auto) 1.0 [place] # (Auto) 0.4 Eos # (Auto) 0.1 Baso # (Auto) 0.0 Nucleated RBC % (a uto) 0 Nucleated RBCs # 0.0 Sodium 138 137 Potassium 3.5 3.3 L Chloride 105 108 H Carbon Dioxide 26 22 Anion Gap 10.5 10.3 BUN 3 L 4 L Creatinine 0.4 L 0.4 L GFR Calculation 175.9 H 175.9 H Glucose 129 H 131 H Calculated Osmolal ity 284 L 283 L Calcium 7.4 L 6.8 L Procedures Performed: Laparoscopic appendectomy Vitals: Last Vital Signs Temp 98.2 F 05/20/21 04:00 Pulse 87 05/20/21 04:00 Resp 16 05/20/21 04:00 BP 124/85 05/20/21 04:00 Pulse Ox 95 05/20/21 04:00 Discharge Plan Discharge Patient Disposition: Home Condition: Stable Prescriptions: New Augmentin 875-125 mg tablet 1 tab PO Q12H Qty: 14 RF: 0 hydrocodone-acetaminophen 5-325 mg tablet 1 tab PO Q6H PRN (Reason: pain) Qty: 20 RF: 0 Discharge Orders: Discharge Order (Routine); Ordered 05/20/21 Ordered By: Froilan Ayoub Referrals: Froilan Ayoub MD [Physician] - 1 week (Please call [facility] Manager Employee Benefits clinic on Friday to schedule a follow up appointment to be seen in one week.) Discharge Diet: Advance as tolerated Discharge Activity: Limit activity as instructed Patient Instructions: Hydrocodone/Acetaminophen (By mouth), Amoxicillin/Clavulanate Potassium (By mouth), Appendicitis (GEN), Opioid Safety Activity Restrictions/Additional Instructions: 1. Patient can shower after 48 hours from surgery 2. Return to surgery office in 1 week to DC skin fernando and review pathology 3. Up and walking as tolerated 4. Do not lift more than 5 pounds first 2 weeks after surgery and not more than 25 pounds 6 to 8 weeks after surgery. 5. Do not operate heavy machinery or drive while using pain medications. 6.Contact the office or return to the ER for worsening nausea vomiting fevers or chills, or noticing any redness around incision sites or discharge. 7. Avoid constipation Discharge Attestations Time Spent in Discharge Care*: greater than 30 min Specific Discharge Activities: educating patient and educating and/or supporting family/caregiver Status at Discharge: Cognitive status at discharge: cognitively intact , Behavioral status at discharge: cooperative , Functional status at discharge: independent ambulation Overall status at discharge: patient is progressing back to baseline Quality Metrics Clinical Quality Measures During this hospital stay, did patient experience: None Coding Level of Care Code Acute [facility] FW DC note Diagnoses Acute appendicitis K35.20 Acute appendicitis type: with generalized peritonitis Appendicitis abscess presence: without abscess Appendicitis gangrene presence: without gangrene Appendicitis perforation presence: with perforation
[2021-05-20 08:00] VITALS: BP 130/89; PULSE 86; RESP 17; TEMP 36.9; O2SAT 96
[2021-05-20] MEDS: psyllium powder Pkt 1 PACKET PO (08:35)
[2021-05-20 12:00] VITALS: BP 127/86; PULSE 97; RESP 16; TEMP 36.7; O2SAT 97
[2021-05-20 15:45] VITALS: BP 119/82; PULSE 99; RESP 18; TEMP 36.9; O2SAT 95
--- NOTE | 2021-05-20 17:49 | PC.NURSE ---
PT HAS DONE WELL TODAY. PT DOES HAVE SOME MINIMAL COMPLAINTS OF ABDOMINAL PAIN BUT IT IS BEING TOLERATED WELL WITH TYLENOL. PT IS AMBULATORY AND DOING GOOD MOVING AROUND. PT WILL DISCHARGE TODAY. IV WAS REMOVED. PT TOLERATED WELL. CATHETER TIP INTACT. DISCHARGE PAPERWORK GONE OVER WITH PT. ALL QUESTIONS ANSWERED. PT IS WAITING ON RIDE. WILL CONTINUE TO MONITOR UNTIL RIDE GETS HERE.
[2021-05-20 17:55] VITALS: BP 119/82; PULSE 99; RESP 18; TEMP 36.9; O2SAT 95
== END 2021-05-20 17:30 | disposition home or self-care (01) | DRG 342 ==
LOC: ER 20:42 → OPS 05-18 00:27 → MEDSURG 05-18 00:28
PROVIDERS: Admitting Provider Surgery; Emergency Provider Emergency Medicine; Visit Provider Surgery
PROC: 0DTJ4ZZ Resection of Appendix, Percutaneous Endoscopic Approach (ICD-10-PCS; CPT 44970; principal; 2021-05-17 22:00)
PROC: 0WQF4ZZ Repair Abdominal Wall, Percutaneous Endoscopic Approach (ICD-10-PCS; 2021-05-17 22:00)
DX: K35.20 Acute appendicitis with generalized peritonitis, without abscess (principal); K42.0 Umbilical hernia with obstruction, without gangrene; K44.9 Diaphragmatic hernia without obstruction or gangrene; R00.0 Tachycardia, unspecified; F41.9 Anxiety disorder, unspecified
CPT/HCPCS: 36415; 71045; 74177; 80048; 80053; 81001; 81025; 83605; 83690; 85025; 87040; 88302; 88304; 96365; 99285; G0378; J0330; J1100; J2405; J2543; J2704; J2710; J3010; J3490; J7030; Q9967; S0030